=== PATIENT | female | born 1995 | race Caucasian/White ===

== ENCOUNTER 2017-06-18 08:55 | Emergency (ER) | payer BC ==
[~2017-06-18] VITALS: Ht 162.6 cm; Wt 117.9 kg
[~2017-06-18 08:55] MED LIST: PENICILLIN250 MG/51 PO
[2017-06-18] MEDS ORDERED: SYNTHROID50 MCG PO (09:11)
[2017-06-18] MEDS ORDERED: ULTRAM 50MG TAB50 MG PO (09:12)
[2017-06-18 10:04] VITALS: BP 127/84
== END 2017-06-18 10:05 | disposition home or self-care (01) ==
LOC: M.ERS 08:55
DX: S93.492A Sprain of other ligament of left ankle, initial encounter (principal); S93.491A Sprain of other ligament of right ankle, initial encounter; W18.39XA Other fall on same level, initial encounter; E03.9 Hypothyroidism, unspecified; Y93.89 Activity, other specified; Y92.89 Other specified places as the place of occurrence of the external cause; Y99.8 Other external cause status

== ENCOUNTER 2018-03-22 01:03 | Emergency (ER) | payer BC ==
[~2018-03-22] VITALS: Ht 162.6 cm; Wt 117.9 kg
[~2018-03-22 01:03] MED LIST changes: +SYNTHROID50 MCG PO; +ULTRAM 50MG TAB50 MG PO
[2018-03-22 01:38] LABS: URINE BLOOD NEGATIVE (Negative); URINE CLARITY CLEAR; URINE COLOR YELLOW; URINE GLUCOSE-RANDOM NEGATIVE (Negative); URINE KETONES NEGATIVE (Negative); URINE LEUKOCYTES-REFLEX NEGATIVE (Negative); URINE NITRITE-REFLEX NEGATIVE (Negative); URINE PROTEIN 1+ (Negative); URINE SPECIFIC GRAVITY >= 1.030 (1.005-1.030); URINE UROBILINOGEN 0.2 E.U./dl (0.2-1.0)
[2018-03-22 01:39] LABS: URINE BILIRUBIN 1+ (Negative)
[2018-03-22 01:44] LABS: ICTOTEST (BILI CONFIRMATORY) Positive (Negative)
[2018-03-22 01:54] LABS: HEMOGLOBIN 14.3 gm/dL (12.0-15.0); MCH 30.4 pg (26.0-34.0); RBC 4.71 mil/uL (4.20-5.00)
[2018-03-22 01:55] LABS: CALCIUM 8.8 mg/dL (8.5-10.1); CREATININE 0.8 mg/dL (0.6-1.3); POTASSIUM 3.7 mmol/L (3.5-5.1)
[2018-03-22 01:59] LABS: HEMATOCRIT 42.1 % (37.0-47.0); MCV 89.5 fL (80.0-100.0); MPV 8.7 fl. (7.2-11.1); NUCLEATED RBCS 0 /100WBC; PLATELET COUNT* 262 thou/uL (150-400); WBC 15.2 thou/uL (4.0-11.0)
[2018-03-22 02:05] LABS: ALBUMIN 3.7 g/dL (3.4-5.0); TOTAL BILIRUBIN 0.6 mg/dL (<0.1-1.0); TOTAL PROTEIN 8.1 g/dL (6.4-8.2)
[2018-03-22] MEDS ORDERED: OMEPRAZOLE20 M2 PO (03:44)
[2018-03-22] MEDS ORDERED: CARAFATE 1 GM TA1 GM PO (03:44)
[2018-03-22 03:55] VITALS: BP 121/62
[2018-03-22 03:56] LABS: ABSOLUTE EOSINOPHILS 0.5 thou/uL (0.0-0.7); ABSOLUTE LYMPHOCYTES 1.2 thou/uL (0.8-5.3); ABSOLUTE MONOCYTES 0.5 thou/uL (0.0-1.2); ABSOLUTE NEUTROPHILS 13.1 thou/uL (1.6-8.1)
[2018-03-22 03:58] LABS: PLATELET ESTIMATE ADEQUATE
== END 2018-03-22 03:55 | disposition home or self-care (01) ==
LOC: M.ERS 01:03
PROVIDERS: Personal Emergency Response Attendant
DX: R10.12 Left upper quadrant pain (principal); R10.32 Left lower quadrant pain; R10.11 Right upper quadrant pain; R11.2 Nausea with vomiting, unspecified; E03.9 Hypothyroidism, unspecified

== ENCOUNTER 2018-07-25 19:39 | Emergency (ER) | payer BC ==
[~2018-07-25] VITALS: Ht 165.1 cm; Wt 131.1 kg
[~2018-07-25 19:39] MED LIST changes: +CARAFATE 1 GM TA1 GM PO; +OMEPRAZOLE20 M2 PO
[2018-07-25] MEDS ORDERED: Magic Mouthwash PO (21:38)
[2018-07-25] MEDS ORDERED: ZOFRAN ODT4 MG PO (21:38)
[2018-07-25 21:50] VITALS: BP 132/89
== END 2018-07-25 21:52 | disposition home or self-care (01) ==
LOC: M.ERS 19:39
DX: J95.830 Postprocedural hemorrhage of a respiratory system organ or structure following a respiratory system procedure (principal); E03.9 Hypothyroidism, unspecified; Z98.890 Other specified postprocedural states

== ENCOUNTER 2019-02-20 06:58 | Emergency (ER) | payer BC ==
[~2019-02-20] VITALS: Ht 165.1 cm; Wt 122.5 kg
[~2019-02-20 06:58] MED LIST changes: +Magic Mouthwash PO; +ZOFRAN ODT4 MG PO
[2019-02-20] MEDS ORDERED: ZPAK PO (08:42)
[2019-02-20 09:00] VITALS: BP 127/95
[2019-02-20] MEDS ORDERED: VENTOLIN HFA 1818 GM INH (20:25)
[2019-02-20] MEDS ORDERED: NAPROSYN500 MG PO (20:25)
[2019-02-20] MEDS ORDERED: HYDROXYZINE HCL25 M2 PO (20:37)
== END 2019-02-20 09:01 | disposition home or self-care (01) ==
LOC: M.ERS 06:58
DX: J06.9 Acute upper respiratory infection, unspecified (principal); E03.9 Hypothyroidism, unspecified; F17.290 Nicotine dependence, other tobacco product, uncomplicated; Z90.89 Acquired absence of other organs

== ENCOUNTER 2019-02-20 17:19 | Emergency (ER) | payer BC ==
[~2019-02-20] VITALS: Ht 165.1 cm; Wt 122.5 kg
[~2019-02-20 17:19] MED LIST changes: +ZPAK PO
[2019-02-20 17:51] LABS: ABSOLUTE BASOPHILS 0.2 thou/uL (0.0-0.2); ABSOLUTE EOSINOPHILS 0.1 thou/uL (0.0-0.7); ABSOLUTE LYMPHOCYTES 3.3 thou/uL (0.8-5.3); ABSOLUTE MONOCYTES 0.9 thou/uL (0.0-1.2); ABSOLUTE NEUTROPHILS 8.2 thou/uL (1.6-8.1); BASOPHILS 1.3 %; EOSINOPHILS 0.9 %; HEMATOCRIT 39.8 % (37.0-47.0); HEMOGLOBIN 13.9 gm/dL (12.0-15.0); MCH 30.7 pg (26.0-34.0); MCHC 34.9 g/dL (28.0-37.0); MCV 87.9 fL (80.0-100.0); MONOCYTES 6.9 %; MPV 8.4 fl. (7.2-11.1); NUCLEATED RBCS 0 /100WBC; PLATELET COUNT* 270 thou/uL (150-400); POLYS 64.9 %; RBC 4.53 mil/uL (4.20-5.00); RDW-CV 12.9 % (10.5-14.5); WBC 12.6 thou/uL (4.0-11.0)
[2019-02-20 17:58] LABS: CALCIUM 9.5 mg/dL (8.5-10.1); CREATININE 0.8 mg/dL (0.6-1.3)
[2019-02-20 18:03] LABS: ALBUMIN 3.7 g/dL (3.4-5.0); TOTAL BILIRUBIN 0.3 mg/dL (<0.1-1.0); TOTAL PROTEIN 8.1 g/dL (6.4-8.2)
[2019-02-20 18:05] LABS: PROTIME 10.2 Seconds (9.20-11.50)
[2019-02-20] MEDS ORDERED: NAPROSYN500 MG PO (20:25)
[2019-02-20] MEDS ORDERED: VENTOLIN HFA 1818 GM INH (20:25)
[2019-02-20] MEDS ORDERED: HYDROXYZINE HCL25 M2 PO (20:37)
[2019-02-20 20:48] VITALS: BP 122/81
--- NOTE | 2019-02-22 12:42 | EKG ---
[place] [address] ELECTROCARDIOGRAM REPORT Name: SUHAS MCKEON Room: [facility]#: [id number] Admission: 02/20/19 Attend Phys: Discharge: 02/20/19 Date of : [birth year] Report #: [id number] THIS REPORT FOR: //name// [facility] ED Test Date: 2019-02-20 Test Time: 17:29:07 Pat Name: SUHAS MCKEON Department: Room: Gender: F Visual Merchandising Manager: GHULAM : 1995 Requested By: Suzanne Pelletier Order Number: [id number] MD: Scottie Romano Measurements Intervals [place] Rate: 95 P: 37 NC: 135 QRS: 67 QRSD: 105 T: 16 QT: 358 QTc: 450 Interpretive Statements Sinus rhythm Baseline wander in lead(s) III No previous ECG available for comparison Electronically Signed On 02-22-2019 12:42:21 DISTRIBUTION SYSTEMS SUPERINTENDENT by Scottie Romano [email or web address] <ELECTRONICALLY SIGNED> By: Scottie Romano MD, [facility] 02/22/19 1242 1729 1729 Scottie Romano MD, FACC /EPI
== END 2019-02-20 20:49 | disposition home or self-care (01) ==
LOC: M.ERS 17:19
PROVIDERS: Personal Emergency Response Attendant
DX: R07.89 Other chest pain (principal); R10.13 Epigastric pain; E03.9 Hypothyroidism, unspecified; Z90.89 Acquired absence of other organs

== ENCOUNTER 2019-04-13 20:23 | Emergency (ER) | payer BC ==
[~2019-04-13] VITALS: Ht 162.6 cm; Wt 138.3 kg
[~2019-04-13 20:23] MED LIST changes: +HYDROXYZINE HCL25 M2 PO; +NAPROSYN500 MG PO; +VENTOLIN HFA 1818 GM INH
[2019-04-13] MEDS ORDERED: SYNTHROID125 MC1 PO (20:37)
[2019-04-13 20:56] LABS: ABSOLUTE BASOPHILS 0.1 thou/uL (0.0-0.2); ABSOLUTE EOSINOPHILS 0.2 thou/uL (0.0-0.7); ABSOLUTE LYMPHOCYTES 3.1 thou/uL (0.8-5.3); ABSOLUTE MONOCYTES 0.7 thou/uL (0.0-1.2); ABSOLUTE NEUTROPHILS 7.6 thou/uL (1.6-8.1); BASOPHILS 1.1 %; EOSINOPHILS 1.4 %; HEMATOCRIT 40.2 % (37.0-47.0); HEMOGLOBIN 13.9 gm/dL (12.0-15.0); LYMPHOCYTES 26.3 %; MCH 30.9 pg (26.0-34.0); MCHC 34.6 g/dL (28.0-37.0); MCV 89.4 fL (80.0-100.0); MONOCYTES 6.3 %; MPV 9.2 fl. (7.2-11.1); NUCLEATED RBCS 0 /100WBC; PLATELET COUNT* 258 thou/uL (150-400); POLYS 64.9 %; RDW-CV 13.1 % (10.5-14.5); WBC 11.8 thou/uL (4.0-11.0)
[2019-04-13 21:05] LABS: CALCIUM 8.3 mg/dL (8.5-10.1); CREATININE 0.7 mg/dL (0.6-1.3); POTASSIUM 4.1 mmol/L (3.5-5.1)
[2019-04-13 21:16] LABS: ALBUMIN 3.5 g/dL (3.4-5.0); MAGNESIUM 1.8 mg/dL (1.8-2.4); TOTAL BILIRUBIN 0.2 mg/dL (<0.1-1.0); TOTAL PROTEIN 7.8 g/dL (6.4-8.2)
[2019-04-13 21:59] VITALS: BP 129/82
--- NOTE | 2019-04-15 15:02 | EKG ---
[place] [address] ELECTROCARDIOGRAM REPORT Name: SUHAS MCKEONNE Room: [facility]#: [id number] Admission: 04/13/19 Attend Phys: Discharge: 04/13/19 Date of : [birth year] Date of Service: 04/13/192028 Report #: [id number] THIS REPORT FOR: //name// [facility] ED Test Date: 2019-04-13 Test Time: 20:29:03 Pat Name: SUHAS MCKEON Department: Room: Gender: F Kitchenhand: ADÁN : 1995 Requested By: Tim Martinez Order Number: [id number] MD: Eligio Marcelo Measurements Intervals [place] Rate: 86 P: 65 MI: 138 QRS: 82 QRSD: 107 T: 38 QT: 378 QTc: 452 Interpretive Statements Sinus rhythm Compared to ECG 02/20/2019 17:29:07 No significant changes Electronically Signed On 04-15-2019 15:02:00 CUSTOMER CARE ASSISTANT by Eligio Marcelo [email or web address] <ELECTRONICALLY SIGNED> By: Ibeth Marcelo MD, [facility] 04/15/19 1502 28 28 Ibeth Marcelo MD, [facility] /EPI
== END 2019-04-13 21:59 | disposition home or self-care (01) ==
LOC: M.ERS 20:23
PROVIDERS: Emergency Medicine Emergency Medical Services
DX: R07.89 Other chest pain (principal); E03.9 Hypothyroidism, unspecified; Z90.89 Acquired absence of other organs

== ENCOUNTER 2020-05-12 07:21 | Emergency (ER) | payer OTHER ==
[~2020-05-12] VITALS: Ht 162.6 cm; Wt 150.6 kg
[~2020-05-12 07:21] MED LIST changes: +SYNTHROID125 MC1 PO
[2020-05-12 08:08] LABS: INFLUENZA A ANTIGEN Negative (Negative); INFLUENZA B ANTIGEN Negative (Negative)
[2020-05-12 08:22] VITALS: BP 136/72
== END 2020-05-12 08:22 | disposition home or self-care (01) ==
LOC: M.ERS 07:21
PROVIDERS: Emergency Medicine Emergency Medical Services
DX: B34.9 Viral infection, unspecified (principal); E03.9 Hypothyroidism, unspecified; Z20.822 Contact with and (suspected) exposure to COVID-19; Z90.89 Acquired absence of other organs; Z79.899 Other long term (current) drug therapy